=== PATIENT | female | born 1990 | race Caucasian/White ===

== ENCOUNTER 2024-04-16 17:39 | Emergency (ER) | payer OTHER ==
[~2024-04-16] VITALS: Ht 165.1 cm; Wt 63.6 kg
[2024-04-16 19:04] VITALS: TEMP 36.8; O2SAT 100
[2024-04-16 19:24] LABS: BASOPHILS % 0.2 % (0.0-2.0); EOSINOPHILS % 0.2 % (0.0-5.0); HEMOGLOBIN. 13.3 g/dL (12.0-16.0); MEAN CORPUSCULAR HEMOGLOBIN 30.3 pg (28.0-32.0); MEAN CORPUSCULAR HGB CONC 33.1 g/dL (31.0-37.0); MEAN CORPUSCULAR VOLUME 91.4 fL (81.0-99.0); MEAN PLATELET VOLUME 8.6 fl (7.4-10.4); MONOCYTES % 3.8 % (2.0-8.0); NEUTROPHILS % 82.8 % (40.0-76.0); PLATELET 202 x1000/uL (130-400); RED BLOOD CELL COUNT 4.38 mill/uL (4.2-5.4); RED CELL DISTRIBUTION WIDTH 13.1 % (11.6-14.6); WHITE BLOOD COUNT 7.1 x1000/uL (4.5-11.0)
[2024-04-16 19:30] LABS: CHLORIDE 106 mEq/L (98-107); POTASSIUM 3.7 mEq/L (3.5-5.1); SODIUM 139 mEq/L (136-145)
[2024-04-16 19:31] LABS: CARBON DIOXIDE 25 mEq/L (21-32)
[2024-04-16 19:32] LABS: CALCIUM 9.6 mg/dL (8.7-10.4)
[2024-04-16 19:36] LABS: CREATININE 0.9 mg/dL (0.6-1.0)
[2024-04-16 19:37] LABS: GLUCOSE 109 mg/dL (70-105); UREA NITROGEN BLOOD 15 mg/dL (9-23)
[2024-04-16 19:38] LABS: ALANINE AMINOTRANSFERASE 25 IU/L (10-49); ALBUMIN 4.7 g/dL (3.2-4.8)
[2024-04-16 19:39] LABS: ASPARTATE AMINOTRANSFERASE 28 IU/L (<34); BILIRUBIN TOTAL 0.3 mg/dL (0.1-1.0); PROTEIN TOTAL 7.2 g/dL (6.0-8.3)
[2024-04-16 19:40] LABS: BILIRUBIN DIRECT < 0.1 mg/dL (<=3.0)
[2024-04-16 19:45] LABS: CLARITY URINE CLEAR (CLEAR); COLOR URINE YELLOW (YELLOW); GLUCOSE URINE NEGATIVE (NEGATIVE); KETONES URINE NEGATIVE (NEGATIVE); LEUKOCYTE ESTERASE URINE NEGATIVE (NEGATIVE); NITRITE URINE NEGATIVE (NEGATIVE); OCCULT BLOOD URINE NEGATIVE (NEGATIVE); PROTEIN URINE NEGATIVE (NEGATIVE); SPECIFIC GRAVITY URINE 1.029 (1.005-1.030)
[2024-04-16 21:10] VITALS: BP 115/71; PULSE 92; RESP 18; O2SAT 100
== END 2024-04-16 21:13 | disposition home or self-care (01) ==
LOC: ER 17:39
DX: R10.31 Right lower quadrant pain (principal); R10.32 Left lower quadrant pain; G43.909 Migraine, unspecified, not intractable, without status migrainosus; Z98.890 Other specified postprocedural states
CPT/HCPCS: 36415; 80053; 80076; 81003; 81025; 85025; 93005; 99284